=== PATIENT | female | born 1975 | race Caucasian/White ===

== ENCOUNTER 2021-07-21 19:44 | Inpatient (IN) | payer OTHER ==
[~2021-07-21] VITALS: Ht 167.6 cm; Wt 89.0 kg
[2021-07-21] MEDS ORDERED: NEXIUM40 MG PO (21:26)
[2021-07-21] MEDS ORDERED: CLARITIN10 M2 PO (21:27)
[2021-07-21 23:24] LABS: HEMOGLOBIN 11.1 gm/dl (12.3-15.3); RED BLOOD COUNT 3.77 M/UL (4.00-5.10); WHITE BLOOD COUNT 9.5 K/UL (4.5-11.0)
[2021-07-21 23:50] LABS: BUN/CREATININE RATIO 24 (0-10)
[2021-07-22] MEDS ORDERED: METFORMIN HCL500 MG PO (08:34)
[2021-07-22] MEDS ORDERED: IBUPROFEN800 MG PO (08:35)
[2021-07-22] MEDS ORDERED: ESOMEPRAZOLE MA20 MG PO (08:50)
[2021-07-22] MEDS ORDERED: PROAIR HFA8.5 GM INH (08:54)
[2021-07-22] MEDS ORDERED: ETONOGESTREL-E1 EACH VG (08:55)
[2021-07-22] MEDS ORDERED: ASPIRIN81 MG PO (13:44)
--- NOTE | 2021-07-22 19:26 | NUR ---
PT STATES, " CAN I PLEASE HAVE SOMETHING TO HELP ME REST? I AM SO ANXIOUS AND CANT SLEEP." NOTIFIED DR HENSLEY AND ORDERS TO CONTINUE HYDROXIZINE ORDERED.
[2021-07-23 04:46] LABS: HEMOGLOBIN 11.3 gm/dl (12.3-15.3); RED BLOOD COUNT 3.88 M/UL (4.00-5.10); WHITE BLOOD COUNT 7.8 K/UL (4.5-11.0)
[2021-07-23 05:15] LABS: BUN/CREATININE RATIO 14 (0-10)
== END 2021-07-23 11:51 | disposition short-term general hospital (02) | DRG 281 ==
LOC: PROG CARE 19:44 → CCU 21:00 → PROG CARE 07-22 06:01
PROVIDERS: Internal Medicine; ADMIT Internal Medicine
PROC: B24BZZZ Ultrasonography of Heart with Aorta (ICD-10-PCS; principal; 2021-07-22)
PROC: 4A023N7 Measurement of Cardiac Sampling and Pressure, Left Heart, Percutaneous Approach (ICD-10-PCS; 2021-07-22)
PROC: B2111ZZ Fluoroscopy of Multiple Coronary Arteries using Low Osmolar Contrast (ICD-10-PCS; 2021-07-22)
DX: I21.4 Non-ST elevation (NSTEMI) myocardial infarction (principal); E87.1 Hypo-osmolality and hyponatremia; N39.0 Urinary tract infection, site not specified; K81.9 Cholecystitis, unspecified; Z20.822 Contact with and (suspected) exposure to COVID-19; E11.9 Type 2 diabetes mellitus without complications; E87.6 Hypokalemia; F17.210 Nicotine dependence, cigarettes, uncomplicated; J45.909 Unspecified asthma, uncomplicated; E66.9 Obesity, unspecified; F12.10 Cannabis abuse, uncomplicated; Z79.82 Long term (current) use of aspirin; Z98.891 History of uterine scar from previous surgery; Z83.3 Family history of diabetes mellitus; Z88.1 Allergy status to other antibiotic agents; Z88.2 Allergy status to sulfonamides; Z68.31 Body mass index [BMI] 31.0-31.9, adult; Z79.84 Long term (current) use of oral hypoglycemic drugs
CPT/HCPCS: ECHO; 36415; 76700; 80053; 80061; 80307; 82550; 82553; 83036; 83735; 84132; 84484; 84550; 85027; 85730; 86140; 87040; 87077; 87086; 87186; 93005; 93306; 99152; 99153; C1769; C1887; C1894; J0696; J1644; J1956; J2250; J2405; J3010; Q0177; Q9967